=== PATIENT | male | born 1950 | race Caucasian/White ===

== ENCOUNTER 2020-08-10 08:56 | Emergency (ER) | payer MEDICARE, BC ==
[2020-08-10 09:04] VITALS: BP 148/80; PULSE 73
--- NOTE | 2020-08-10 09:52 | EDM.PDOC ---
ED HPI GENERAL MEDICAL PROBLEM - General Chief Complaint: Genitourinary Problem Stated Complaint: plugged catheter Time Seen by Provider: 08/10/20 09:25 Source of Information: Reports: Patient History Limitations: Reports: No Limitations - History of Present Illness INITIAL COMMENTS - FREE TEXT/NARRATIVE: Patient underwent TURP yesterday and has Madrid in place. Not draining. Bladder feels very full. No other acute complaints. - Related Data Allergies Allergy/AdvReac Type Severity Reaction Status Date / Time influenza virus vaccine, Allergy Paralysis Verified 08/10/20 08:58 specific [Influenza Virus Vacc,Specific] formaldehyde Allergy Rash Uncoded 08/10/20 08:58 trees/plants Allergy Other Uncoded 08/10/20 08:58 Home Meds: Home Meds Allopurinol [Zyloprim] 100 mg PO QAM 05/13/16 [History] Clobetasol Propionate [Temovate] 1 applic TOP DAILY PRN 05/13/16 [History] Furosemide 20 mg PO DAILY 07/06/16 [History] atorvaSTATin Calcium [Atorvastatin Calcium] 40 mg PO BEDTIME 07/06/16 [History] glipiZIDE [Glipizide ER] 2.5 mg PO DAILY 10/20/16 [History] Cholecalciferol (Vitamin D3) [Vitamin D3] 1 cap PO DAILY 08/10/20 [History] Multivit-Min/Folic/Vit K/Lycop [Men's 50 Plus Multivitamin Tab] 1 tab PO DAILY 08/10/20 [History] Phenazopyridine HCl [Pyridium] 1 tab PO Q8HR 08/10/20 [History] Tamsulosin [Flomax] 1 cap PO DAILY 08/10/20 [History] amLODIPine Besylate [Amlodipine Besylate] 10 mg PO DAILY 08/10/20 [History] cephALEXin [Cephalexin] 1 cap PO BID 08/10/20 [History] glipiZIDE [Glucotrol XL] 1 tab PO QAM 08/10/20 [History] lisinopriL [Lisinopril] 1 tab PO BID 08/10/20 [History] metFORMIN [Glucophage XR] 1 tab PO BID 08/10/20 [History] Past Medical History HEENT History: Reports: Hard of Hearing, Other (See Below) Other HEENT History: vision corrected by glasses, hearing aides worn Cardiovascular History: Reports: High Cholesterol, Hypertension Other Cardiovascular History: varicose veins BLE Respiratory History: Reports: Sleep Apnea Gastrointestinal History: Reports: None Genitourinary History: Reports: Prostate Disorder, Other (See Below) Other Genitourinary History: "prostate surgery" Musculoskeletal History: Reports: Gout Neurological History: Reports: None Psychiatric History: Reports: Addiction Endocrine/Metabolic History: Reports: Diabetes, Type II, Obesity/BMI 30+ Hematologic History: Reports: None Immunologic History: Reports: None Oncologic (Cancer) History: Reports: None Dermatologic History: Reports: Venous Stasis Dermatitis - Infectious Disease History Infectious Disease History: Reports: Chicken Pox, Measles, Mumps, Rubella, Shingles - Past Surgical History Head Surgeries/Procedures: Reports: None Respiratory Surgical History: Reports: None GI Surgical History: Reports: Appendectomy, Colonoscopy Male Surgical History: Reports: TURP-Transurethral Resection of Prostate Neurological Surgical History: Reports: None Musculoskeletal Surgical History: Reports: Arthroscopic Knee, Other (See Below) Other Musculoskeletal Surgeries/Procedures:: sternal repair Oncologic Surgical History: Reports: None Dermatological Surgical History: Reports: Other (See Below) Social & Family History - Tobacco Use Smoking Status *Q: Former Smoker Used Tobacco, but Quit: Yes Month/Year Tobacco Last Used: 1981 Second Hand Smoke Exposure: No - Caffeine Use Caffeine Use: Reports: Coffee - Recreational Drug Use Recreational Drug Use: No ED ROS GENERAL - Review of Systems Review Of Systems: See Below Constitutional: Reports: No Symptoms HEENT: Reports: Glasses Respiratory: Reports: No Symptoms Cardiovascular: Reports: No Symptoms GI/Abdominal: Reports: Distension, Other (bladder fullness). Denies: Constipation, Diarrhea, Nausea, Vomiting : Reports: Urinary Retention Musculoskeletal: Reports: No Symptoms (no acute changes from baseline) Skin: Reports: No Symptoms Neurological: Reports: No Symptoms Psychiatric: Reports: No Symptoms ED EXAM, GENERAL - Physical Exam Exam: See Below Exam Limited By: No Limitations General Appearance: Alert, WD/WN, No Apparent Distress Eye Exam: Bilateral Eye: EOMI, PERRL Head: Atraumatic, Normocephalic Neck: Supple Respiratory/Chest: No Respiratory Distress GI/Abdominal: Other (Discomfort when palpated over lower central abdomen) (Male) Exam: Other (Madrid in place. Some urine leaking around [place]/not obviously bloody) Rectal (Males) Exam: Deferred Neurological: Alert, Oriented, Normal Cognition Psychiatric: Normal Affect, Normal Mood Skin Exam: Warm, Dry, Normal Color Course - Vital Signs Last Recorded V/S: Last Vital Signs Temp 36.7 C 08/10/20 09:02 Pulse 73 08/10/20 09:02 Resp 20 08/10/20 09:02 BP 148/80 H 08/10/20 09:02 Pulse Ox 97 08/10/20 09:02 - Re-Assessments/Exams Free Text/Narrative Re-Assessment/Exam: 08/10/20 11:25 Nursing staff attempted to irrigate [place] but no return. Bladder scan showed greater than 999ml retained in bladder. Patient and noted that who performed TURP instructed that he be called if any problems with the [place] were encountered. He instructed us to replace [place] with [address] [place] [address]. Over 1300ml bloody colored urine obtained. It was noted that the new catheter's flow was slowing and bladder scan continued to show around 500ml retained. Nurse was able to maneuver catheter around and additional 600ml returned. Another call was placed to to determine next step. It was decided that patient would be discharged from the ER and then drive to [facility] where he would be met by one of the Urology cargo inspector, Elham for further evaluation and treatment planning. Patient and agreeable with plan. Patient much more comfortable after almost 2000ml urine drained from bladder. Departure - Departure Time of Disposition: 11:09 Disposition: DC/Tfer to [facility] Clinical Impression: Retention of urine, S/P TURP - Discharge Information *PRESCRIPTION DRUG MONITORING PROGRAM REVIEWED*: Not Applicable *COPY OF PRESCRIPTION DRUG MONITORING REPORT IN PATIENT RENATO: Not Applicable Referrals: Cristal Delong PA-C [Primary Care Provider] - Forms: ED Department Discharge Additional Instructions: Drive to [facility] on [id number]. Present to the ER and have them ask for Elham. She works with Urology and will take a look at what is going on with the clotting and work with on a solution. Sepsis Event Note (ED) - Evaluation Sepsis Screening Result: No Definite Risk - Focused Exam Vital Signs: Vital Signs Temp Pulse Resp BP Pulse Ox 08/10/20 09:02 36.7 C 73 20 148/80 H 97
== END 2020-08-10 11:30 ==
LOC: LL.ED 08:56
DX: N99.89 Other postprocedural complications and disorders of genitourinary system (principal); R33.9 Retention of urine, unspecified; E78.00 Pure hypercholesterolemia, unspecified; I10 Essential (primary) hypertension; M10.9 Gout, unspecified; E11.9 Type 2 diabetes mellitus without complications; Z79.84 Long term (current) use of oral hypoglycemic drugs; E66.9 Obesity, unspecified; Z88.8 Allergy status to other drugs, medicaments and biological substances; Z87.891 Personal history of nicotine dependence; Z88.7 Allergy status to serum and vaccine; Z88.1 Allergy status to other antibiotic agents; Z91.048 Other nonmedicinal substance allergy status; Z79.899 Other long term (current) drug therapy
CPT/HCPCS: 51702; 51798; 99284